=== PATIENT | male | born 1930 | race Caucasian/White ===

== ENCOUNTER → 2016-10-13 | Outpatient (CLI) | payer OTHER | END | disposition home or self-care (01) | LOC: PCVCCLINIC 09:50 | PROVIDERS: ATTEND Internal Medicine Cardiovascular Disease | DX: I44.0 Atrioventricular block, first degree (principal); I10 Essential (primary) hypertension; E78.00 Pure hypercholesterolemia, unspecified; M85.88 Other specified disorders of bone density and structure, other site; I48.0 Paroxysmal atrial fibrillation; Z87.81 Personal history of (healed) traumatic fracture; Z87.01 Personal history of pneumonia (recurrent); Z79.01 Long term (current) use of anticoagulants; Z88.8 Allergy status to other drugs, medicaments and biological substances; Z79.899 Other long term (current) drug therapy; Z87.891 Personal history of nicotine dependence | CPT/HCPCS: 36415; 93005; G0463 ==

== ENCOUNTER → 2016-11-09 | Outpatient (CLI) | payer OTHER ==
[~2016-11-09] MED LIST: REGADENOSON 0.4 MG/5 ML DISP.SYRIN. IV ONE
--- NOTE | 2016-11-10 09:14 | PCVCIMAG ---
APPROVED REPORT Exam: Nuclear Stress Test Indication: Dyspnea Patient Location: Out-Patient Stress Nurse: Arabella Ga RN, Sylvie Jasso RN [place] Tech:John Amaya NMTCB Ht: 6 ft 0 in Wt: 188 lbs BSA: 2.08 m2 HR: 57 bpm BP: 137/82 mmHg BMI: 25.4 Rhythm: Bradycardia Medical History Medical History: Age, Hyperlipidemia, HTN, Afib Medications: Amlodipine, Atenolol, Multaq, Coumadin Allergies: None Pretest Chest Pain Characteristics: No chest pain Exercise History: Physically active Meds Held (24 hrs): Atenolol Stress Test Details Stress Test: Pharmacologic stress was paired with low level exercise. Reason for pharmacologic stress test: physical limitation. HR Resting HR: 57 bpmMax Heart Rate (APMHR): 135 bpm Max HR Achieved: 77 bpmTarget HR (85% APMHR): 114 bpm % of APMHR: 57 Recovery HR: 66 bpm BP Resting BP: 137/82 mmHg Max BP: 130/80 mmHg ECG Resting ECG: Sinus Bradycardia Stress ECG: Sinus Rhythm ST Change: Non-ischemic Recovery ECG: Sinus Rhythm Clinical Reason for Termination: Completed protocol Stress Symptoms: Dyspnea Symptoms resolved during recovery. NM EXAM: Myocardial Perfusion REST/STRESS Imaging Protocol: Rest Tc-99m/Stress Tc-99m 1 day Resting Data Rest SPECT myocardial perfusion imaging was performed in supine position 45 minutes following the intravenous injection of 11.1 mCi of Tc-99m Sestamibi. Time of rest injection: 0800 Date: 11/09/2016 Pharmacologic Stress Pharmacologic stress test was performed by injecting Regadenoson 0.4 mg IV push followed by the intravenous injection of 33.5 mCi of Tc-99m Sestamibi. Time of stress injection: 929 Date: 11/09/2016 The images were gated to evaluate regional wall motion and calculate left ventricular ejection fraction. Study Quality Study: Good Study Data Post stress, the left ventricular ejection was 74%.. SSS: 0 SRS: 2 SDS: 0 TID = 1.06. Perfusion Normal perfusion on both the stress and rest images. Wall Motion Normal left ventricular wall motion. Nuclear Conclusion ECG Findings: non-ischemic Clinical Findings: non-diagnostic Nuclear Findings: negative for ischemia Left Ventricular Function: normal This study is of low probability for inducible ischemia or prior infarct. Normal global and segmental LV systolic function.
== END | disposition home or self-care (01) ==
LOC: PCVCIMAG 07:54
PROVIDERS: ATTEND Internal Medicine Cardiovascular Disease
DX: I48.91 Unspecified atrial fibrillation (principal); I10 Essential (primary) hypertension; E78.5 Hyperlipidemia, unspecified; R00.1 Bradycardia, unspecified; K52.9 Noninfective gastroenteritis and colitis, unspecified
CPT/HCPCS: 78452; 93017; A9500; J2785

== ENCOUNTER → 2016-11-10 | Outpatient (CLI) | payer OTHER | END | disposition home or self-care (01) | LOC: PCVCCLINIC 14:43 | PROVIDERS: ATTEND Internal Medicine Cardiovascular Disease | DX: I44.0 Atrioventricular block, first degree (principal); I48.0 Paroxysmal atrial fibrillation; I10 Essential (primary) hypertension; E78.5 Hyperlipidemia, unspecified; Z87.01 Personal history of pneumonia (recurrent); Z87.891 Personal history of nicotine dependence | CPT/HCPCS: G0463 ==

== ENCOUNTER → 2017-07-20 | Outpatient (CLI) | payer OTHER | END | disposition home or self-care (01) | LOC: PCVCCLINIC 09:34 | DX: I48.91 Unspecified atrial fibrillation (principal); I10 Essential (primary) hypertension; R06.09 Other forms of dyspnea; R60.9 Edema, unspecified; E78.5 Hyperlipidemia, unspecified; R94.31 Abnormal electrocardiogram [ECG] [EKG]; Z79.899 Other long term (current) drug therapy; Z87.891 Personal history of nicotine dependence | CPT/HCPCS: 36415; 93005; G0463 ==

== ENCOUNTER → 2018-01-18 | Outpatient (CLI) | payer OTHER ==
--- NOTE | 2018-01-18 10:55 | PCVCIMAG ---
APPROVED REPORT Study performed: 01/18/2018 10:02:47 EXAM: Comprehensive 2D, Doppler, and color-flow Echocardiogram Patient Location: Echo lab Status: routine BSA: 2.01 HR: 58 bpmBP: 136/81 mmHg Rhythm: Bradycardia Other Information Study Quality: Adequate Technically limited study due to poor acoustic windows. Risk Factors: Cardiac Risk Factors: HTN Indications Atrial Fibrillation Dyspnea 2D Dimensions IVSd: 11.95 (7-11mm) LVDd: 37.34 mm PWd: 11.45 (7-11mm)Ascending Ao: 37.29 (22-36mm) LVDs: 31.46 (25-40mm) Left Atrium: 32.91 (27-40mm) Aortic Root: 35.30 mm LV Single Plane 4CH: 57.72 % LV Single Plane 2CH: 46.31 % Volumes Left Atrial Volume (Systole) Single Plane 4CH: 71.46 mLSingle Plane 2CH: 98.15 mL LA ESV Index: 45.00 mL/m2 Aortic Valve AoV Peak Moe.: 1.26 m/s AO Peak Gr.: 6.34 mmHgLVOT Max P.97 mmHg LVOT Max V: 1.00 m/s AI Vmax: 4.24 m/s AI [place]: 1.85 m/s2 AI PHT: 664.10 ms Mitral Valve E/A Ratio: 0.7 MV Decel. Time: 415.82 ms MV E Max Moe.: 0.59 m/s MV A Moe.: 0.89 m/s MV PHT: 120.59 ms IVRT: 162.63 ms Pulmonary Valve PV Peak Moe.: 0.74 m/sPV Peak Gr.: 2.19 mmHg Pulmonary Vein P Vein S: 0.24 m/sP Vein A: 0.31 m/s P Vein D: 0.33 m/sP Vein A Dur.: 152.2 msec P Vein S/D Ratio: 0.73 Tricuspid Valve TR Peak Moe.: 2.61 m/s TR Peak Gr.: 27.20 mmHg Left Ventricle The left ventricle is normal size. There is normal LV segmental wall motion. Borderline concentric left ventricular hypertrophy. Left ventricular systolic function is normal. The left ventricular ejection fraction is within the normal range. LVEF is 50-55%. Grade I - abnormal relaxation pattern. Right Ventricle The right ventricle is normal size. The right ventricular systolic function is normal. Atria The left atrium size is normal. The right atrium size is normal. Aortic Valve The aortic valve is normal in structure. Mild aortic regurgitation. There is no aortic valvular stenosis. Mitral Valve The mitral valve is normal in structure. Trace mitral regurgitation. No evidence of mitral valve stenosis. Tricuspid Valve The tricuspid valve is normal in structure. Mild tricuspid regurgitation with PAP of 37 mmHg. Pulmonic Valve The pulmonary valve is normal in structure. There is no pulmonic valvular regurgitation. Great Vessels The aortic root is normal in size. IVC is normal in size and collapses >50% with inspiration. Pericardium There is no pericardial effusion. There is no pleural effusion. <Conclusion> The left ventricle is normal size. Left ventricular systolic function is normal. Grade I - abnormal relaxation pattern. The right ventricle is normal size. The left atrium size is normal. Mild aortic regurgitation. Trace mitral regurgitation. Mild tricuspid regurgitation with PAP of 37 mmHg.
== END | disposition home or self-care (01) ==
LOC: PCVCIMAG 11:06
PROVIDERS: ATTEND Internal Medicine Cardiovascular Disease
DX: I48.91 Unspecified atrial fibrillation (principal); I08.2 Rheumatic disorders of both aortic and tricuspid valves; R06.09 Other forms of dyspnea; I10 Essential (primary) hypertension
CPT/HCPCS: 93306

== ENCOUNTER → 2018-07-19 | Outpatient (CLI) | payer OTHER | END | disposition home or self-care (01) | LOC: PCVCCLINIC 11:30 | PROVIDERS: ATTEND Internal Medicine Cardiovascular Disease | DX: I48.91 Unspecified atrial fibrillation (principal); J47.9 Bronchiectasis, uncomplicated; I10 Essential (primary) hypertension; R60.9 Edema, unspecified; M85.88 Other specified disorders of bone density and structure, other site; E78.5 Hyperlipidemia, unspecified; I48.0 Paroxysmal atrial fibrillation; Z79.899 Other long term (current) drug therapy; Z88.8 Allergy status to other drugs, medicaments and biological substances; Z87.891 Personal history of nicotine dependence; Z72.89 Other problems related to lifestyle | CPT/HCPCS: 36415; G0463 ==